=== PATIENT | female | born 1960 | race Caucasian/White ===

== ENCOUNTER → 2017-07-22 | Outpatient (CLI) | payer OTHER ==
[~2017-07-22] MED LIST: CALC500T76 PO; IBU800 PO; LOR5/325 PO; METH0.2T PO; MULT-1335 PO
--- NOTE | 2017-07-23 09:32 | RADIOLOGY IMAGING REPORT ---
FACILITY: [facility] PATIENT NAME: ROBERTO DAIGLE : [id number] MR: [id number] V: [id number] EXAM DATE: [id number] ORDERING PHYSICIAN: WOODY LIEBERMAN TECHNOLOGIST: Love Ruiz PROCEDURE:BILATERAL DIGITAL SCREENING MAMMOGRAM WITH CAD ASSISTED INTERPRETATION & 3D BREAST TOMOSYNTHYSIS COMPARISON:Prior mammograms dated 04/24/16, 01/25/14, 02/20/11 INDICATIONS:screening FINDINGS: Moderately dense fibroglandular tissue is seen throughout the breasts. The parenchymal pattern has remained stable when allowing for difference in mammographic technique & patient positioning. There is no evidence of malignant appearing mass, malignant appearing calcification or secondary sign of malignancy in either breast. DIAGNOSTIC CATEGORY 1--NEGATIVE. RECOMMENDATIONS: ROUTINE MAMMOGRAM AND CLINICAL EVALUATION. IMPRESSION: BIRADS 1: NEGATIVE 1. No significant abnormality is seen Dictated by: Mile Lewis M.D. on 07/22/2017 at 16:40 Transcribed by: LEONILA on 07/23/2017 at 8:45 Approved by: Mile Lewis M.D. on 07/23/2017 at 8:56 [facility]
== END ==
LOC: MAMO 01:35
PROVIDERS: ATTEND Family Medicine
DX: Z12.31 Encounter for screening mammogram for malignant neoplasm of breast (principal)
CPT/HCPCS: 77063; 77067

== ENCOUNTER 2017-09-25 02:42 | Day surgery (SDC) | payer OTHER ==
[2017-09-25] VITALS (7 sets, daily range): BP systolic 98–136; BP diastolic 63–90
[~2017-09-25] VITALS: Ht 167.6 cm; Wt 68.9 kg
[~2017-09-25 02:42] MED LIST changes: +ASCO-182 PO; +OMEG1CAP35 PO
[2017-09-25] MEDS ORDERED: LIDOCAINE MPF 1% 5 ML VIAL ONE (06:47)
[2017-09-25] MEDS ORDERED: PROPOFOL EMUL(*) 10MG/ML 20 ML 60 ML ONE (06:47)
--- NOTE | 2017-09-25 07:19 | Post Operative Progress Note ---
Post Operative Progress Note Date: Sep 25, 2017 Time: 10:06 Surgeon: dinesh Anesthesia: dr hall Pre-Op Diagnosis: positive cologuard Post-Op Diagnosis: normal colonoscopy Procedure(s): colonosocopy LUIS ENRIQUE BADILLO MD Sep 25, 2017 07:19
--- NOTE | 2017-09-25 07:20 | Short(Outpt) Discharge Summary ---
Discharge Summary Reason for Hosp/Final Diag: (1) Positive colorectal cancer screening using Cologuard test Hospital Course & Plan: normal colonoscopy Departure Discharge to: Home Discharge Instructions Home Meds Reported Medications Ascorbic Acid (VITAMIN C) 500 Mg Tablet, 500 MG PO QDAY, TAB 09/19/17 [place]-3/Dha/Epa/Fish Oil (FISH OIL 500 MG SOFTGEL) 1 Each Capsule, 1 EACH PO QDAY, CAPSULE 09/19/17 Calcium (Calcium) 500 Mg Tablet, 500 MG PO, 0 Refills DOSAGE UNKNOWN. 01/06/11 Diet: Regular Activity: As Tolerated LUIS ENRIQUE BADILLO MD Sep 25, 2017 07:20
[2017-09-25] MEDS ORDERED: NORMOSOL R SOLN(*) 1000 ML BAG 1,000 ML IV PRN (08:30)
[2017-09-25] MEDS ORDERED: LIDOCAINE/SOD BICARB 8.4% SYR ID ONE (08:30)
--- NOTE | 2017-09-25 15:25 | OPERATIVE REPORT 1 ---
EVENT DATE: September 25, 2017 SURGEON: Devyn Azar MD ANESTHESIOLOGIST: Lenin Brice MD ANESTHESIA: Sedation. PREOPERATIVE DIAGNOSIS Abnormal Cologuard screening test of the colon. POSTOPERATIVE DIAGNOSIS Normal-appearing colonoscopic examination. PROCEDURE PERFORMED Colonoscopy. DESCRIPTION OF PROCEDURE The patient was placed in the left lateral decubitus position and given intravenous sedation. Digital exam was unremarkable. A flexible colonoscope was inserted and advanced to the cecum. She had an excellent bowel prep. Ileocecal valve, base of the cecum, and appendiceal orifice were identified. The scope was slowly withdrawn. Care was taken to look behind the haustral folds. No abnormalities were noted in the cecum, right colon, transverse, descending, or sigmoid colon. Rectum was normal. The scope was retroflexed. That appeared to be normal. [facility]
== END 2017-09-25 11:15 | disposition home or self-care (01) ==
LOC: OR 02:42
PROVIDERS: ATTEND Surgery
DX: R19.5 Other fecal abnormalities (principal)
CPT/HCPCS: 00811; 45378; J2001; J2704

== ENCOUNTER → 2018-09-29 | Outpatient (CLI) | payer OTHER ==
--- NOTE | 2018-09-30 08:23 | RADIOLOGY IMAGING REPORT ---
FACILITY: [facility] - [place], [place] PATIENT NAME: ROBERTO DAIGLE : [id number] MR: [id number] V: [id number] EXAM DATE: ORDERING PHYSICIAN: WOODY LIEBERMAN TECHNOLOGIST: Love Ruiz PROCEDURE:BILATERAL DIGITAL SCREENING MAMMOGRAM WITH CAD ASSISTED INTERPRETATION & 3D TOMOSYNTHESIS COMPARISON:Prior mammograms 07/22/17, 04/24/16, 01/25/14. INDICATIONS:screening FINDINGS: The breasts are heterogeneously dense which can obscure small masses. Most of the parenchymal pattern has remained stable allowing for difference in mammographic technique & patient positioning. Along the lateral portion of the Left breast in the posterior 1/3 on the Left CC view there are multiple small focal areas of increased density suggestive of calcifications. These are not approached on the prior mammograms. A Left XCC view is recommended for further evaluation. If these densities persist Spot magnification view recommended. DIAGNOSTIC CATEGORY 0--INCOMPLETE: NEED ADDITIONAL IMAGING EVALUATION. RECOMMENDATIONS: ADDITIONAL MAMMOGRAPHIC VIEWS REQUIRED: LEFT BREAST. IMPRESSION: BIRADS 0: Incomplete. Additional views of the Left breast recommended as described. Dictated by: Mile Lewis M.D. on 09/29/2018 at 15:10 Transcribed by: LEONILA on 09/29/2018 at 15:22 Approved by: Mile Lewis M.D. on 09/30/2018 at 8:22 [facility]
== END ==
LOC: MAMO 09-03 00:49
PROVIDERS: ATTEND Family Medicine
DX: Z12.31 Encounter for screening mammogram for malignant neoplasm of breast (principal); R92.8 Other abnormal and inconclusive findings on diagnostic imaging of breast
CPT/HCPCS: 77063; 77067

== ENCOUNTER → 2018-10-09 | Outpatient (CLI) | payer OTHER ==
--- NOTE | 2018-10-13 10:08 | RADIOLOGY IMAGING REPORT ---
FACILITY: [facility] PATIENT NAME: ROBERTO DAIGLE : [id number] MR: [id number] V: [id number] EXAM DATE: ORDERING PHYSICIAN: WOODY LIEBERMAN TECHNOLOGIST: Love Ruiz PROCEDURE:LEFT DIGITAL DIAGNOSTIC MAMMOGRAM WITH CAD ASSISTED INTERPRETATION & 3D TOMOSYNTHESIS COMPARISON:Prior mammogram 09/29/18. INDICATIONS:further evaluation FINDINGS: The patient returns for an XCC view of the Left breast. The multiple punctuate areas of increased density suggestive of calcifications in the posterior lateral aspect of the Left breast on the recent Left CC view are no longer seen. These apparently represented artifacts on the patient's skin. DIAGNOSTIC CATEGORY 1--NEGATIVE. RECOMMENDATIONS: ROUTINE MAMMOGRAM AND CLINICAL EVALUATION. IMPRESSION: BIRADS 1: Negative. No significant abnormality of the Left breast is seen. Dictated by: Mile Lewis M.D. on 10/09/2018 at 10:33 Transcribed by: LEONILA on 10/09/2018 at 14:21 Approved by: Mile Lewis M.D. on 10/13/2018 at 10:07 [facility]
== END ==
LOC: MAMO 00:44
PROVIDERS: ATTEND Family Medicine
DX: R92.2 Inconclusive mammogram (principal)
CPT/HCPCS: 77065